=== PATIENT | male | born 1950 | race Caucasian/White ===

== ENCOUNTER 2018-06-28 11:25 | Emergency (ER) | payer BC ==
[~2018-06-28] VITALS: Ht 180.3 cm; Wt 88.5 kg
[~2018-06-28 11:25] MED LIST: AMBIEN10 MG PO; CARDURA PO; LIPITOR PO
[2018-06-28] MEDS ORDERED: HYDROMORPHONE 1MG/1ML INJ IV STA (11:39)
[2018-06-28] MEDS ORDERED: HYDROMORPHONE 2MG/ML 2 MG/ML ML IV NR (12:00)
--- NOTE | 2018-06-28 12:48 | Diagnostic Imaging Report ---
Exam: Bilateral hips and pelvis History: Fell off ladder 2 days prior to presentation Comparison: None. Findings: No acute, displaced fracture or dislocation. The femoral heads project appropriately over the acetabula. There is mild bilateral degenerative joint disease manifested by joint space narrowing and marginal lateral acetabular osteophytosis. Sacroiliac joints are intact. Sacral foramina are normal superiorly. The inferior sacral body and coccyx are secured by rectal gas and stool. Mild degenerative changes of the partially visualized lower lumbar spine. Impression: No acute osseous abnormality. Signed by: Dr. Trav Guevara M.D. on 06/28/2018 12:45 PM
--- NOTE | 2018-06-28 12:51 | Diagnostic Imaging Report ---
EXAMINATION: PA and lateral views of the chest. COMPARISON: None CLINICAL HISTORY: Abdominal pain, fall from ladder DISCUSSION: The lungs are well-inflated. No focal airspace consolidation, pleural effusion, or pneumothorax. Linear fibrosis or atelectasis in the right middle lobe. Calcified granuloma in the left lower lobe. Tortuous thoracic aorta with atherosclerotic calcification. Normal heart size. No pulmonary edema. No acute osseous abnormality. Multilevel degenerative disc changes of the thoracic spine. IMPRESSION: No acute cardiopulmonary abnormalities. Signed by: Dr. Trav Guevara M.D. on 06/28/2018 12:48 PM
--- NOTE | 2018-06-28 13:39 | Diagnostic Imaging Report ---
Examination: CT CERVICAL SPINE WITHOUT CONTRAST HISTORY:Fall. Neck injury and pain. COMPARISON:None. TECHNIQUE: Multidetector helical axial images were obtained without contrast from the foramen magnum to T1. Coronal and sagittal reformatted images were done. Bone and soft tissue windows were evaluated. Dose modulation, iterative reconstruction, and/or weight based adjustment of the mA/kV was utilized to reduce the radiation dose to as low as reasonably achievable. FINDINGS: Alignment:Normal alignment and lordosis. Vertebrae: Normal height and density. No acute fracture, infection or neoplasm. Disc space heights: Normal height. Caliber of spinal canal: Developmentally normal. Posterior fossa and craniocervical junction: Foramen magnum patent. No Chiari 1 malformation. Soft tissues: No abnormality. Degenerative changes: Severe left facet arthropathy at C3-C4 with mild left neural foraminal narrowing. No right foraminal or canal stenosis. The remaining cervical levels demonstrate no disc bulge/ herniation or foraminal or canal stenosis. Visualized lung apices: No abnormalities. IMPRESSION: 1. No acute abnormalities, specifically, no fracture. 2. Degenerative change at C3-C4, as above. Signed by: Dr. Amy Giang M.D. on 06/28/2018 1:36 PM
[2018-06-28] MEDS ORDERED: ULTRAM50 MG PO (13:57)
[2018-06-28] MEDS ORDERED: ROBAXIN-750750 MG PO (13:57)
[2018-06-28 15:08] VITALS: BP 103/69
== END 2018-06-28 15:11 | disposition home or self-care (01) ==
LOC: ER 11:25
DX: M54.6 Pain in thoracic spine (principal); M54.2 Cervicalgia; S23.3XXA Sprain of ligaments of thoracic spine, initial encounter; S16.1XXA Strain of muscle, fascia and tendon at neck level, initial encounter; W11.XXXA Fall on and from ladder, initial encounter; Y92.008 Other place in unspecified non-institutional (private) residence as the place of occurrence of the external cause
CPT/HCPCS: 71046; 72125; 73522; 99284; J1170